=== PATIENT | male | born 1990 | race Caucasian/White ===

== ENCOUNTER 2020-12-20 08:46 | Emergency (ER) | payer SELFPAY ==
[~2020-12-20] VITALS: Ht 172.7 cm; Wt 77.3 kg
[2020-12-20 08:57] VITALS: BP 125/85; TEMP 99.4
[2020-12-20 10:45] VITALS: PULSE 72
== END 2020-12-20 10:45 | disposition home or self-care (01) ==
LOC: COL.ER 08:46
DX: U07.1 COVID-19 (principal)

== ENCOUNTER → 2021-11-20 | Outpatient (CLI) | payer SELFPAY | LOC: COL.RAD 12:05 | DX: M54.2 Cervicalgia (principal); R51.9 Headache, unspecified ==